=== PATIENT | male | born 1995 | race Caucasian/White ===

== ENCOUNTER 2025-01-12 09:41 | Emergency (ER) | payer BC, SELFPAY ==
[2025-01-12 09:54] VITALS: BP 126/84; PULSE 94; RESP 16; TEMP 36.7; O2SAT 99
--- NOTE | 2025-01-12 10:04 | ED_ITS ---
HPI - URI/Sore Throat General Chief Complaint: Upper Respiratory Infection Stated Complaint: Bodyaches/Fever Time Seen by Provider: 01/12/25 10:04 Source: patient Mode of arrival: ambulatory Limitations: no limitations History of Present Illness HPI Narrative: 29 yo M here for covid test. Sent by his supervisors due to positive coworkers. Yesterday pt states he was congested and fatigue. Afebrile. Today feels fine. All systems reviewed and negative except as noted above. Related Data Home Medications ?Medication ?Instructions ?Recorded ?Confirmed ?Last Taken ?Type No Home Medications 01/12/25 01/12/25 U nknown History Allergies Allergy/AdvReac Type Severity Reaction Status Date / Time No Known Drug Allergies Allergy none Verified 01/12/25 09:56 [facility] Comments At time of signature, agree with nursing past medical, surgical, social and family history. There is no relevant family history pertinent to the presenting complaint. Exam Narrative: GENERAL: This is a well-nourished, well-developed patient, in no apparent distress. HEAD: normocephalic, atraumatic. EYES: PERRL. Sclera clear/white. Vision is grossly intact. EARS: External ears normal, auditory canals clear and without drainage, TMs normal without perforation. Hearing grossly intact. NOSE: External nose normal with no obvious nasal discharge, nares without redness, no rhinorrhea. THROAT: Mucous membranes moist, posterior pharynx clear. NECK: Neck supple, non-tender without lymphadenopathy, masses or thyromegaly. CARDIOVASCULAR: Regular rate and rhythm without murmurs, gallops, or rubs. RESPIRATORY: Clear to auscultation. Breath sounds equal bilaterally. No wheezes, rales, or rhonchi. SKIN: warm, Dry, intact with no suspicious lesions or rash, good texture and turgor. NEURO: awake, alert, and oriented to person, place and time. There were no obvious focal neurologic abnormalities. EXTREMITIES: No joint tenderness, effusion, or edema noted. Course Course Level of Care: Express Care Visit Vital Signs Vital signs: Vital Signs Temperature 36.7 C 01/12/25 09:54 Pulse Rate 94 01/12/25 09:54 Respiratory Rate 16 01/12/25 09:54 Blood Pressure 126/84 01/12/25 09:54 Pulse Oximetry 99 08/25/25 09:54 Oxygen Delivery Room Air 01/12/25 09:54 Temperature 36.7 C 01/12/25 09:54 Pulse Rate 94 01/12/25 09:54 Respiratory Rate 16 01/12/25 09:54 Blood Pressure 126/84 01/12/25 09:54 Pulse Oximetry 99 01/12/25 09:54 Oxygen Delivery Room Air 01/12/25 09:54 reviewed MDM - URI/Sore Throat MDM Narrative Medical decision making narrative: positive COVID test. Patient is well-appearing, nontoxic. Normal exam. Differential Diagnosis Differential diagnosis: Likely upper respiratory infection, sinusitis and viral infection Lab Data Labs: Lab Results 01/12/25 Range/Units 10:03 POC SARS CoV-2 Ag Positive (Negative) Discharge Plan Discharge Clinical Impression: COVID-19 Patient Disposition: Home Condition: Stable Instructions: COVID-19 (Coronavirus Disease 2019) (ED) Additional Instructions: your COVID test was positive today. COVID is a virus and symptoms may last 10-14 days. Taking [id number] medication to treat her symptoms such as DayQuil NyQuil cold and flu. Take as directed on packaging. Take ibuprofen every 6-8 hours as needed for fever and pain. Drink at least 64 oz of water a day. See your primary care physician if symptoms are not improving. Patient Language: Japanese Prescriptions: No Action No Home Medications Follow-up/Referrals: PHYSICIAN,GLUE CLAMP OPERATOR [Primary Care Provider, Internal Medicine] Stand Alone Forms: Work/School Release IP Time of Disposition: 10:10
[2025-01-12 10:05] LABS: EDCOVIDSCREEN Positive (Negative)
== END 2025-01-12 10:15 | disposition home or self-care (01) ==
PROVIDERS: Emergency Provider Nurse Practitioner Family
DX: U07.1 COVID-19 (principal)
CPT/HCPCS: 87426; 99202; G0463